=== PATIENT | female | born 1955 | race Caucasian/White ===

== ENCOUNTER → 2019-06-21 | Outpatient (CLI) | payer OTHER ==
[~2019-06-21] MED LIST: ASPIRIN325 PO; CYMBALTA20 MG PO; FISH OIL 1,001000 M2 PO; HYDROCODONE-AP1 EAC6 PO; INDOMETHACIN 2525 MG PO; IRON325 PO; LEVOTHYROXIN0.125 M1 PO; NEXIUM40 MG PO; NORCO 5-325 TA1 EACH PO; VITAMIN D1000 UNI1 PO; ZESTORETIC 20-1 EAC3 PO
== END ==
LOC: M.RAD 14:59
DX: Z12.31 Encounter for screening mammogram for malignant neoplasm of breast (principal)

== ENCOUNTER → 2019-12-19 | Outpatient (CLI) | payer OTHER | LOC: M.RAD 14:26 | PROVIDERS: ATTEND Nurse Practitioner Primary Care | DX: N95.1 Menopausal and female climacteric states (principal) ==

== ENCOUNTER → 2021-04-20 | Outpatient (CLI) | payer OTHER | LOC: M.RAD 14:19 | PROVIDERS: ATTEND Nurse Practitioner Primary Care | DX: Z12.31 Encounter for screening mammogram for malignant neoplasm of breast (principal) ==